=== PATIENT | male | born 1975 | race Caucasian/White ===

== ENCOUNTER 2020-11-13 09:37 | Observation (INO) | payer OTHER ==
[~2020-11-13] VITALS: Ht 177.8 cm; Wt 75.7 kg
[~2020-11-13 09:37] MED LIST: DIAZ5 PO; HYDR1TAB94 PO; LISI5 PO; LOSHYD PO; METF500 PO; Naprosyn500 MG PO; Norco 7.5-3251 EACH PO; TIZANIDINE HCL2 MG PO; ZESTORETIC 20-121 EA PO
[2020-11-13] MEDS ORDERED: TRAM50 PO (10:48)
[2020-11-13 10:57] LABS: BASOPHILS PERCENT AUTO 1 % (0-2); EOSINOPHILS ABSOLUTE AUTO 0.12 K/mm3 (0.00-0.68); EOSINOPHILS PERCENT AUTO 1 % (0-6); Hematocrit 44.6 % (37.0-53.0); Hemoglobin 15.6 g/dL (13.5-17.5); IMMATURE GRAN ABSOLUTE AUTO 0.04 K/mm3 (0.00-0.10); IMMATURE GRAN PERCENT AUTO 0 % (0-1); LYMPHOCYTES PERCENT AUTO 26 % (21-46); MONOCYTES ABSOLUTE AUTO 0.87 K/mm3 (0.16-1.47); MONOCYTES PERCENT AUTO 7 % (4-13); Mean Corpuscular HGB 31.4 pg (26.0-34.0); Mean Corpuscular Volume 90 fL (80-100); Mean Platelet Volume 9.2 fL (9.1-12.4); NEUTROPHILS PERCENT AUTO 65 % (41-73); Platelet Count 310 K/mm3 (150-400); RDW Coefficient Variation 11.9 % (11.7-14.2); RDW Standard Deviation 38.3 fL (35.1-46.3); Red Blood Cell Count 4.97 M/mm3 (4.30-5.90); White Blood Cell Count 12.13 K/mm3 (4.00-11.30)
[2020-11-13 11:16] LABS: Alanine Aminotransfer (ALT/SGP 28 U/L (12-78); Albumin, Blood 3.9 g/dL (3.4-5.0); Albumin/Globulin Ratio 1.1 (0.8-1.8); Alk Phos 113 U/L (50-136); Anion Gap 8 mmol/L (6-16); Aspartate Aminotrans (AST/SGOT 11 U/L (12-37); Bilirubin, Total 0.2 mg/dL (0.1-1.0); Blood Urea Nitrogen 18 mg/dL (8-24); Bun/Creatinine Ratio 25.4 (12.0-20.0); CO2, Blood 26 mmol/L (21-32); Calcium, Blood 9.3 mg/dL (8.5-10.1); Chloride, Blood 105 mmol/L (98-108); Creatinine, Blood 0.71 mg/dL (0.60-1.20); Globulin, Blood 3.4 g/dL (2.2-4.0); Glomerular Filtration Rate >60 (60-); Glucose, Blood 357 mg/dL (70-99); Sodium, Blood 139 mmol/L (136-145); Total Protein, Blood 7.3 g/dL (6.4-8.2)
[2020-11-13 12:45] LABS: Influenza A, PCR NEGATIVE (NEGATIVE); Influenza B, PCR NEGATIVE (NEGATIVE); Resp Syncytial Virus, PCR NEGATIVE (NEGATIVE); SARS-Cov-2 (COVID-19) PCR, MMC NEGATIVE (NEGATIVE)
[2020-11-13] MEDS ORDERED: ATOR20 PO (13:55)
[2020-11-13] MEDS ORDERED: GLUCOPHAGE1000 M1 PO (13:57)
[2020-11-13] MEDS ORDERED: Aspir 8181 MG PO (13:58)
[2020-11-13] MEDS ORDERED: LOSARTAN POTAS100 M1 PO (14:00)
[2020-11-13] MEDS ORDERED: BUPR150ER PO (15:14)
--- NOTE | 2020-11-13 17:00 | NUR ---
SHIFT SUMMARY PT A&OX4, VSS, NPO, PLAN FOR PEGTUBE PLACEMENT TOMORROW. IVF @ 75 MLS/HR. PAIN MANAGED WITH 25 MCG. VOIDING WELL. USES CALL LIGHT APPROPRIATELY. WILL REPORT TO ONCOMING NOC RN.
--- NOTE | 2020-11-14 05:05 | NUR ---
SHIFT SUMMARY: EMILY IS A&OX4. BP ELEVATED, HYDRALAZINE MINIMALLY EFFECTIVE. PT REPORTS GOOD PAIN RELIEF WITH 50 MCG OF FENTANYL. HE IS INDEPENDENT IN THE ROOM. IV TO L AC PATENT. HE REMAINS NPO, SWABS PROVIDED. HE USES THE CALL LIGHT APPROPRIATELY. HE IS LYING IN BED WITH THE CALL LIGHT IN REACH. WILL REPORT TO DAY SHIFT RN.
[2020-11-14 05:58] LABS: BASOPHILS ABSOLUTE AUTO 0.09 K/mm3 (0.00-0.23); BASOPHILS PERCENT AUTO 1 % (0-2); EOSINOPHILS ABSOLUTE AUTO 0.27 K/mm3 (0.00-0.68); EOSINOPHILS PERCENT AUTO 2 % (0-6); Hematocrit 41.4 % (37.0-53.0); Hemoglobin 14.5 g/dL (13.5-17.5); IMMATURE GRAN ABSOLUTE AUTO 0.06 K/mm3 (0.00-0.10); IMMATURE GRAN PERCENT AUTO 0 % (0-1); LYMPHOCYTES ABSOLUTE AUTO 4.82 K/mm3 (0.84-5.20); LYMPHOCYTES PERCENT AUTO 35 % (21-46); MONOCYTES ABSOLUTE AUTO 1.01 K/mm3 (0.16-1.47); MONOCYTES PERCENT AUTO 7 % (4-13); Mean Corpuscular HGB 31.2 pg (26.0-34.0); Mean Corpuscular Volume 89 fL (80-100); Mean Platelet Volume 9.2 fL (9.1-12.4); NEUTROPHILS ABSOLUTE AUTO 7.55 K/mm3 (1.96-9.15); NEUTROPHILS PERCENT AUTO 55 % (41-73); Platelet Count 296 K/mm3 (150-400); RDW Coefficient Variation 11.9 % (11.7-14.2); RDW Standard Deviation 38.1 fL (35.1-46.3); Red Blood Cell Count 4.65 M/mm3 (4.30-5.90)
[2020-11-14 06:25] LABS: Alanine Aminotransfer (ALT/SGP 27 U/L (12-78); Albumin, Blood 3.4 g/dL (3.4-5.0); Albumin/Globulin Ratio 1.2 (0.8-1.8); Alk Phos 72 U/L (50-136); Anion Gap 5 mmol/L (6-16); Aspartate Aminotrans (AST/SGOT 12 U/L (12-37); Bilirubin, Total 0.6 mg/dL (0.1-1.0); Blood Urea Nitrogen 12 mg/dL (8-24); Bun/Creatinine Ratio 21.6 (12.0-20.0); CO2, Blood 29 mmol/L (21-32); Calcium, Blood 8.6 mg/dL (8.5-10.1); Chloride, Blood 109 mmol/L (98-108); Creatinine, Blood 0.56 mg/dL (0.60-1.20); Globulin, Blood 2.8 g/dL (2.2-4.0); Glomerular Filtration Rate >60 (60-); Glucose, Blood 113 mg/dL (70-99); Potassium, Blood 3.2 mmol/L (3.5-5.5); Sodium, Blood 143 mmol/L (136-145); Total Protein, Blood 6.2 g/dL (6.4-8.2)
--- NOTE | 2020-11-14 13:11 | NUR ---
History, Chart, Medications and Allergies reviewed before start of procedure. Pre-Op teaching done. Pt verbalizes understanding.
--- NOTE | 2020-11-14 13:24 | NUR ---
11/14/20 1324 Iain Baker History, Chart, Medications and Allergies reviewed before start of procedure.MONITOR INTACT WITH CONTINUOUS PULSE OXIMETRY AND INTERMITTENT BP.3-LEAD EKG REVIEWED WITH PHYSICIAN PRIOR TO START OF PROCEDURE.O2 VIA N/C INTACT THROUGHOUT SEDATION/PROCEDURE. See Anesthesia record.
--- NOTE | 2020-11-14 13:24 | NUR ---
PT WENT TO [facility].
--- NOTE | 2020-11-14 17:14 | NUR ---
SHIFT SUMMARY PT A&OX4, VSS, AMBULATING INDEPENDENT TO BRP, VOIDING WELL, NPO, CBGS AC/HS. PAIN MANAGED WITH 50 MCGS FENT. S/P GASTROSOMY TUBE PLACEMENT; TUBE FEEDINGS RUNNING PER ORDER. WILL REPORT TO ONCOMING NOC RN.
--- NOTE | 2020-11-14 19:12 | NUR ---
RECEIVED REPORT FROM DAY SHIFT RN. PT SALINE LOCKED AND PEG TUBE FLUSHED AFTER INFUSION.
--- NOTE | 2020-11-15 04:05 | NUR ---
SHIFT SUMMARY: EMILY IS A&OX4. VS W/CONTINUED ELEVATION OF BP WITH MINIMAL IMPROVEMENT AFTER HYDRALAZINE. HE IS PARTICIPATING WITH HIS PEG TUBE, ATTENTIVE TO EDUCATION AND WILLING TO BE HANDS-ON. HE REPORTS ADEQUATE PAIN CONTROL WITH 50 MCG OF FENTANYL. IV TO L AC PATENT. HE IS INDEPENDENT IN THE ROOM, USES THE WHEELCHAIR TO GO ON "WALKS" AROUND THE HOSPITAL. HE IS LYING IN BED WITH THE CALL LIGHT IN REACH. WILL REPORT TO DAY SHIFT RN.
[2020-11-15 05:16] LABS: Hematocrit 41.7 % (37.0-53.0); Hemoglobin 14.4 g/dL (13.5-17.5); Mean Corpuscular HGB 30.5 pg (26.0-34.0); Mean Corpuscular HGB Conc 34.5 g/dL (31.5-36.5); Mean Corpuscular Volume 88 fL (80-100); Mean Platelet Volume 9.3 fL (9.1-12.4); Platelet Count 317 K/mm3 (150-400); RDW Coefficient Variation 11.8 % (11.7-14.2); Red Blood Cell Count 4.72 M/mm3 (4.30-5.90); White Blood Cell Count 13.82 K/mm3 (4.00-11.30)
[2020-11-15 05:52] LABS: Albumin, Blood 3.4 g/dL (3.4-5.0); Anion Gap 7 mmol/L (6-16); Blood Urea Nitrogen 10 mg/dL (8-24); Bun/Creatinine Ratio 18.1 (12.0-20.0); CO2, Blood 28 mmol/L (21-32); Calcium, Blood 8.8 mg/dL (8.5-10.1); Chloride, Blood 108 mmol/L (98-108); Creatinine, Blood 0.55 mg/dL (0.60-1.20); Glomerular Filtration Rate >60 (60-); Glucose, Blood 145 mg/dL (70-99); Magnesium, Blood 2.1 mg/dL (1.6-2.4); Phosphorus, Blood 4.3 mg/dL (2.5-4.9); Potassium, Blood 3.2 mmol/L (3.5-5.5); Sodium, Blood 143 mmol/L (136-145)
[2020-11-15 09:43] LABS: CHOL/HDL RATIO 2.4; Cholesterol 113 mg/dL (50-200); HDL Cholesterol 47 mg/dL (>39); LDL/HDL RATIO 1.1; Low Density Lipoprotein Chol 50 mg/dL (0-110); Triglycerides 81 mg/dL (30-160); Very Low Density Lipoprot Chol 16 mg/dL (6-32)
--- NOTE | 2020-11-15 13:56 | NUR ---
assumed care of pt following receiving report from previous RN. pt just out of shower, dressed and sitting on edge of bed, provided with ice water.
--- NOTE | 2020-11-15 17:36 | NUR ---
pt has remained a/o x 4, pleasant/cooperative, has worked with physical therapy, has ambulated to bathroom and in the hallway with wheelchair. pt has had visits from this afternoon. pt denies n/v, was evaluated by speech therapy.
--- NOTE | 2020-11-16 05:00 | NUR ---
SHIFT SUMMARY AOX4. SLURRED SPEECH. PLEASENT & COOPERATIVE. REPORTS 03/12 CHRONIC BACK PAIN, MEDICATED 1X c PERCOCET & PT ABLE TO REST. POD 2 FOR PEG TUBE PLACEMENT, PT NPO. DENIES N/V, ABD PAIN. ACTIVE BT. MEDS CRUSHED & PT. PT REFUSED 2100 FEEDING, STATING HE DIDNT FEEL HUNGRY & WANTED TO BE DISCONECTED FROM PUMP. BP ELEVATED @170 SYSTOLIC THIS AM, GAVE 10MG HYDRALAZINE, WILL RECHECK BP. HS CBG @117. AWAITING SNF PLACEMENT. CALL LIGHT IN REACH & WCTM.
[2020-11-16 09:19] LABS: Albumin, Blood 3.2 g/dL (3.4-5.0); Anion Gap 4 mmol/L (6-16); Blood Urea Nitrogen 12 mg/dL (8-24); Bun/Creatinine Ratio 21.1 (12.0-20.0); CO2, Blood 31 mmol/L (21-32); Calcium, Blood 8.6 mg/dL (8.5-10.1); Chloride, Blood 107 mmol/L (98-108); Creatinine, Blood 0.57 mg/dL (0.60-1.20); Glomerular Filtration Rate >60 (60-); Glucose, Blood 256 mg/dL (70-99); Phosphorus, Blood 3.7 mg/dL (2.5-4.9); Potassium, Blood 3.8 mmol/L (3.5-5.5); Sodium, Blood 142 mmol/L (136-145)
--- NOTE | 2020-11-16 18:21 | NUR ---
SHIFT SUMMARY PT TOLERATING INTERMITTEN FEEDS SO FAR TODAY. DENIES FULLNESS OR ABD DISTENTION. PT HAS NOT HAD A BM IN 5-6 DAYS PER THE PT. BOWEL CARE GIVEN T/O THE DAY. INCLUDING PRUNE JUICE. AFTERNOON BP ELEVATED. RECHECKED IN THE 170S SYSTOLIC. PT HOPING TO BE DISCHARGED TOMORROW TO A REHAB CENTER. NO OTHER ACUTE CHANGES IN ASSESSMENT AT THIS TIME. VS REVIEWED. PT RESTING IN BED & DENIES OTHER NEEDS AT THIS TIME. CALL LIGHT IN REACH.
--- NOTE | 2020-11-17 04:29 | NUR ---
SHIFT SUMMARY: SEVERE DYSPASIA PATIENT IS ALERT AND ORIENTED X4 WHILE AWAKE. HE HAS BEEN SLEEPING MAJORITY OF THE SHIFT BUT EASILY AROUSABLE. HE DOES HAVE A HIGH BP BUT OTHERWISE HAS WNL VS AND IS ON RA. PAIN IS CONTROLLED WITH 1 PERCOCET. HIS PEG TUBE IS WNL. HE HAS BEEN GETTING BOLUS FEEDS Q4H. HIS PILLS ARE ALSO CRUSHED AND GIVEN THROUGH PEG TUBE. PATIENT DENIES ANY NAUSEA OR VOMITING WITH FEEDINGS. HE HAS BOWEL SOUNDS IN ALL FOUR QUADRANTS. HE WALKS WITH A CANE AND IS INDEPENDANT. HE DOES HAVE A SLIGHT LEFT SIDED WEAKNESS AND A SLUR WITH HIS SPEECH FROM A STROKE HE HAD A MONTH AGO. CALLS APPROPRIATELY. CALL LIGHT WITHIN REACH. THE PLAN IS TO BE DISCHARGED TO A STROKE REHAB LATER TODAY.
[2020-11-17 17:15] LABS: Influenza A, PCR NEGATIVE (NEGATIVE); Influenza B, PCR NEGATIVE (NEGATIVE); Resp Syncytial Virus, PCR NEGATIVE (NEGATIVE); SARS-Cov-2 (COVID-19) PCR, MMC NEGATIVE (NEGATIVE)
--- NOTE | 2020-11-18 04:48 | NUR ---
SHIFT SUMMARY PT RESTED WELL THIS SHIFT. AAOX4. NPO. DISCOMFORT CONTROLLED WITH 2 PERCOCET CRUSHED PER TUBE. NO NAUSEA/EMESIS. PEG TUBE SECURE/NO DRAINAGE. FEEDINGS PER TUBE PER ORDERS. HTN NOTED, DR NOTIFIED + NEW ORDER FOR IV HYDRALAZINE ADMINISTERED, BP DECREASED POST ADMINISTRATION. x1 MODERATE SIZE FORMED STOOL THIS SHIFT. AWAITING TRANSFER TODAY. PT CURRENTLY RESTING IN BED WITH CALL LIGHT IN REACH.
--- NOTE | 2020-11-18 19:53 | NUR ---
SHIFT SUMMARY PT A&OX4, VSS, NPO/PEG TUBE FEEDINGS PER ORDERS. AMBULATING HALLWAYS, INDEPENDENT TO BRP. DENIES PAIN. SHOWERED TODAY. PLAN FOR TRANSFER TOMORROW. REPORT PROVIDED TO JOAN FIGUEREDO.
--- NOTE | 2020-11-19 05:51 | NUR ---
SHIFT SUMMARY PT RESTED WELL T/O NIGHT. AAOX4. DISCOMFORT CONTROLLED WITH 2 PERCOCET YESTARDAY EVENING. NO NAUSEA/EMESIS. STRICT NPO. PEG TUBE SECURE WITH SCHEDULED BOLUS FEEDINGS. ORAL CARE Q4H WHILE AWAKE. NO ACUTE CHANGES OVER NIGHT. PT AWOKE EARLY THIS AM + AMBULATED IN HALLS INDEPENDENT. AWAITING AM LABS + 0600 BOLUS FEEDING. PT CURRENTLY RESTING IN ROOM WITH CALL LIGHT IN REACH.
[2020-11-19 06:34] LABS: Albumin, Blood 3.3 g/dL (3.4-5.0); Anion Gap 6 mmol/L (6-16); Blood Urea Nitrogen 14 mg/dL (8-24); Bun/Creatinine Ratio 25.1 (12.0-20.0); CO2, Blood 30 mmol/L (21-32); Calcium, Blood 9.1 mg/dL (8.5-10.1); Chloride, Blood 109 mmol/L (98-108); Creatinine, Blood 0.56 mg/dL (0.60-1.20); Glomerular Filtration Rate >60 (60-); Glucose, Blood 112 mg/dL (70-99); Phosphorus, Blood 4.3 mg/dL (2.5-4.9); Potassium, Blood 3.4 mmol/L (3.5-5.5); Sodium, Blood 145 mmol/L (136-145)
--- NOTE | 2020-11-19 10:03 | NUR ---
SPEECH THERAPY DONE SEEING PT, INT FEED INITIATED AT THIS TIME. PT RESTING IN BED LISTENING TO BOOKS ON TAPE. DENIES PAIN OR NAUSEA AT THIS TIME.
--- NOTE | 2020-11-19 17:31 | NUR ---
SHIFT SUMMARY AA0X4. PT HAS BEEN AMBULATING FREQUENTLY DURING THE DAY. TOLERATING HIS FEEDINGS WELL, DENIES ANY NAUSEA. PAIN MANAGED PER EMAR ONCE THIS AM, HAS DENIED PAIN OTHERWISE. PLAN IS FOR PATIENT TO GO TO SNF AT THE START OF NEXT WEEK.
--- NOTE | 2020-11-20 05:37 | NUR ---
SHIFT SUMMARY: NO ACUTE CHANGES THIS SHIFT. PT AMBULATING IN HALLWAYS FREQUENTLY. TOLERATING FEEDS WELL. DENIES N/V. REPORTS PASSING FLATUS. PAIN MANAGED WITH PERCOCET PER EMAR. PT MEDICATED ONCE THIS SHIFT. PLAN FOR PT/OT. AWAITING SNF PLACEMENT. PT PLEASANT AND COOPERATIVE WITH CARE.
--- NOTE | 2020-11-20 18:30 | NUR ---
SUMMARY REPORTS TOLERATING TUBE FEEDINGS WELL, DENIES ANY ABD DISCOMFORT, AMBULATES INDEPENDENTLY WITH A CANE TO GO OUTSIDE, PT DOES OWN ORAL CARE PRN, NO ACUTE CHANGES THIS SHIFT.
--- NOTE | 2020-11-21 07:11 | NUR ---
PT HAD NO ACUTE CHANGES T/O NIGHT; BP ELEVATED BUT BELOW PRN PARAMETERS. PT DENIED CP/PRESSURE. PT JELENA TUBE FEEDINGS, ABD SOFT, BT ACTIVE, PT REP +FLATUS AND BM. AM TUBE FEED STARTED AT 0630 THIS AM, TUBING CHANGED AT THIS TIME WELL. PT AMB INDEP W/CANE FREQ OUTSIDE OF ROOM. PT IS FORGETFUL AT TIMES R/T DATES, REORIENTS EASILY. REPORT GIVEN TO SVETLANA Jorge RN.
--- NOTE | 2020-11-21 07:59 | NUR ---
A&OX3, DENIES ANY NEED FOR PAIN MEDS AT THIS TIME, AMBULATING DOWN THE HALLS W/ CANE, CONT. TO MONITOR FOR ANY CHANGES.
--- NOTE | 2020-11-21 18:24 | NUR ---
SUMMARY PT FELT "SLEEPY" TODAY, STATES DIDN'T SLEEP WELL LAST NIGHT, C/O CHRONIC LOW BACK PAIN, REPORTS HAVING ADEQUATE PAIN CONTROL WITH PERCOCET, AMBULATED OUTSIDE TO SMOKE X6 TODAY, DISCUSSED SMOKING CESSATION WITH PT BUT HAS NO INTEREST IN QUITTING, REPORTS TOLERATING TUBE FEEDS WELL, BP BETTER TODAY, NO OTHER CHANGES THIS SHIFT.
--- NOTE | 2020-11-22 07:19 | NUR ---
PT VSS, BP ELEVATED EARLY IN NIGHT, IMPROVED AFTER SCHEDULED BP MEDS. PT DENIED CP/PRESSURE. PT APPEARED TO SLEEP FOR MAJORITY OF NIGHT. TUBE FEEDS STARTED AT 0630 THIS AM, TUBING CHANGED AT THIS TIME. PT REMAINED NPO, CONT TO EXPRESS STRONG DESIRE TO EAT, ALTHOUGH VERBALIZES UNDERSTANDING OF IMPORTANCE OF NPO AND PLAN FOR REHAB. CONT TO AWAIT DC PLANS TO IRU.
--- NOTE | 2020-11-22 11:46 | NUR ---
TUBE FEEDING PT GIVEN A 240 ML JEVITY FEEDING AT 0900 AND 1200 WITH 100 ML WATER FLUSH BEFORE AND AFTER EACH FEEDING. PT TOLERATED WELL AND DENIES PAIN, BLOATING. NO RESISTANCE NOTED. DRESSING C/D/I AT THIS TIME.
--- NOTE | 2020-11-22 18:08 | NUR ---
SHIFT SUMMARY PT ALERT AND INDEPENDENT IN ROOM THROUGH OUT SHIFT. SLURRED SPEECH AND OCCASIONLLY FORGETFUL. GIVEN 240 ML JEVITY PEG TUBE FEEDING WITH 100 ML WATER FLUSH BEFORE AND AFTER AT 1500 AND 1800. PT TOLERATED WELL. PT PERFORMING Q3 HR ORAL CARE WITH SUCTION TOOTH BRUSH. ABD SOFT AND NON-TENDER. PEG TUBE DRESSING C/D/I. MEDICATED FOR PAIN AND BLOOD GLUCOSE PER EMAR. WAITING FOR SNF PLACEMENT, NOTHING POTENTIALLY AVAIL UNTIL FRIDAY 11/24 PER CASE MANAGEMENT.
--- NOTE | 2020-11-22 23:33 | NUR ---
RECEIVED REPORT AND ASSUMED CARE OF PT. EMILY IS UP TO THE BATHROOM, PAIN MEDICATION PROVIDED AT HIS REQUEST. HE IS ABLE TO MAKE HIS NEEDS KNOWN. WCSHINE.
--- NOTE | 2020-11-23 05:11 | NUR ---
SHIFT SUMMARY: EMILY IS A&OX4. VSS, NO ACUTE EVENTS OVERNIGHT. HE IS TOLERATING THE TUBE FEEDINGS WELL AND REPORTS ADEQUATE PAIN CONTROL WITH ONE TABLET OF PERCOCET. HE IS INDEPENDENT IN THE ROOM AND HALLWAYS. HE STATES THAT HE IS WAITING FOR A BED TO OPEN UP SO THAT HE CAN RECEIVE INPATIENT THERAPY. HE EXPRESSES HOPE THAT HE WILL BE ABLE TO EAT AGAIN. HE IS LYING IN BED WITH THE CALL LIGHT IN REACH. WILL REPORT TO DAY SHIFT RN.
--- NOTE | 2020-11-23 12:54 | NUR ---
DIETARY NOTE SPOKE WITH DIETARY. THE BOLUS TUBE FEEDINGS ARE INTERFERING WITH THE SPEECH/SWALLOW THERAPY. DIETARY IS GOING TO CHANGE THE FEEDINGS TO GRAVITY FEED WHICH WILL BE FASTER. WILL WATCH FOR ORDERS.
[2020-11-23 17:19] LABS: Influenza A, PCR NEGATIVE (NEGATIVE); Influenza B, PCR NEGATIVE (NEGATIVE); Resp Syncytial Virus, PCR NEGATIVE (NEGATIVE); SARS-Cov-2 (COVID-19) PCR, MMC NEGATIVE (NEGATIVE)
--- NOTE | 2020-11-23 17:26 | NUR ---
SHIFT SUMMARY PATIENT IS ALERT AND INDEPENDENT IN ROOM THROUGHOUT SHIFT. FORGETFUL AT TIMES AND SPEECH IS SLURRED. PEG TUBE IS PATENT AND DRESSING C/D/I. Q3 HR TUBE FEEDINGS DURING DAY. FEEDINGS SWITCHED TO GRAVITY FEED THIS SHIFT. PATIENT ABLE TO SELF PERFORM ORAL CARE. DENIES ABD PAIN. VOIDING WELL. PLAN TO DISCHARGE TO SNF 11/24/20 IF BED AVAILABLE. MEDICATED FOR CHRONIC BACK PAIN PER EMAR.
--- NOTE | 2020-11-24 04:47 | NUR ---
SHIFT SUMMARY: NO SIGNIFICANT CHANGES THIS SHIFT. PEG TUBE WNL AND FLUSHED DURING MEDICATION ADMINISTRATION. PT MEDICATED ONCE WITH PEROCOCET PER EMAR. INDPENDENT AND AMBULATING FREQUENTLY IN HALLWAY. AWAITING SNF PLACEMENT.
--- NOTE | 2020-11-24 11:43 | NUR ---
REPORT GIVEN TO SARAI, SAND SYSTEM OPERATOR IN [facility] AT THIS TIME
--- NOTE | 2020-11-24 12:15 | NUR ---
FACILITY TRANSFER: 0900 TUBE FEEDING GIVEN WELL A FEEDING AT 1145. PT GIVEN PACKET, IV DC'D. PT LEFT UNIT AT 1200 VIA WHEELCHAIR WITH GUSTAVO BROWER.
== END 2020-11-24 12:05 | disposition home or self-care (01) ==
LOC: ER 09:37 → SURS 09:38
PROVIDERS: Emergency Medicine; Internal Medicine; Physician Assistant; Surgery; ADMIT Internal Medicine
PROC: 0DH63UZ Insertion of Feeding Device into Stomach, Percutaneous Approach (ICD-10-PCS; principal; 2020-11-14 13:00)
DX: I69.391 Dysphagia following cerebral infarction (principal); R13.12 Dysphagia, oropharyngeal phase; I69.321 Dysphasia following cerebral infarction; E11.65 Type 2 diabetes mellitus with hyperglycemia; I10 Essential (primary) hypertension; F17.210 Nicotine dependence, cigarettes, uncomplicated; G89.29 Other chronic pain; M54.5 Low back pain; Z79.82 Long term (current) use of aspirin; Z79.84 Long term (current) use of oral hypoglycemic drugs; Z88.8 Allergy status to other drugs, medicaments and biological substances; Z20.822 Contact with and (suspected) exposure to COVID-19
CPT/HCPCS: 0241U; 36415; 71046; 80053; 80061; 80069; 82947; 83036; 83735; 85025; 85027; 92526; 92610; 93005; 93010; 93306; 93880; 96374; 96375; 96376; 97110; 97110-CO; 97112; 97116; 97129; 97129-GO-CO; 97130; 97162; 97166; 97530; 97535-CO; 99285-25; A9270; C1769; G0378; J0360; J2704; J3010; J3480; J7030; J7040

== ENCOUNTER 2023-04-30 13:27 | Inpatient (IN) | payer OTHER ==
[~2023-04-30] VITALS: Ht 172.7 cm; Wt 73.2 kg
[~2023-04-30 13:27] MED LIST changes: +ATOR20 PO; +Aspir 8181 MG PO; +BUPR150ER PO; +GLUCOPHAGE1000 M1 PO; +LOSA50 PO; +TRAM50 PO
[2023-04-30 15:15] LABS: BASOPHILS ABSOLUTE AUTO 0.07 K/mm3 (0.00-0.23); BASOPHILS PERCENT AUTO 1 % (0-2); EOSINOPHILS ABSOLUTE AUTO 0.15 K/mm3 (0.00-0.68); EOSINOPHILS PERCENT AUTO 1 % (0-6); Hematocrit 43.1 % (37.0-53.0); Hemoglobin 15.8 g/dL (13.5-17.5); IMMATURE GRAN ABSOLUTE AUTO 0.03 K/mm3 (0.00-0.10); IMMATURE GRAN PERCENT AUTO 0 % (0-1); LYMPHOCYTES ABSOLUTE AUTO 3.04 K/mm3 (0.84-5.20); LYMPHOCYTES PERCENT AUTO 28 % (21-46); MONOCYTES ABSOLUTE AUTO 0.66 K/mm3 (0.16-1.47); MONOCYTES PERCENT AUTO 6 % (4-13); Mean Corpuscular HGB 32.2 pg (26.0-34.0); Mean Corpuscular HGB Conc 36.7 g/dL (31.5-36.5); Mean Corpuscular Volume 88 fL (80-100); Mean Platelet Volume 9.5 fL (9.1-12.4); NEUTROPHILS ABSOLUTE AUTO 6.74 K/mm3 (1.96-9.15); NEUTROPHILS PERCENT AUTO 63 % (41-73); Platelet Count 276 K/mm3 (150-400); RDW Coefficient Variation 11.7 % (11.7-14.2); RDW Standard Deviation 37.5 fL (35.1-46.3); Red Blood Cell Count 4.91 M/mm3 (4.30-5.90); White Blood Cell Count 10.69 K/mm3 (4.00-11.30)
[2023-04-30 15:39] LABS: Albumin/Globulin Ratio 1.4 (0.8-1.8); Bilirubin, Total 0.7 mg/dL (0.1-1.0); Bun/Creatinine Ratio 34.5 (12.0-20.0); Calcium, Blood 9.3 mg/dL (8.5-10.1); Creatinine, Blood 0.52 mg/dL (0.60-1.20); Globulin, Blood 2.9 g/dL (2.2-4.0); Potassium, Blood 4.1 mmol/L (3.5-5.5); Total Protein, Blood 6.9 g/dL (6.4-8.2)
[2023-04-30 16:23] LABS: International Normalized Ratio 0.98; Prothrombin Time Results 10.3 Sec (9.7-11.5)
[2023-04-30] MEDS ORDERED: DOXE10 PO (16:30)
[2023-04-30 17:01] VITALS: BP 192/102
--- NOTE | 2023-04-30 20:03 | NUR ---
LATE ENTRY PT ADMIT FROM ER. ALERT AND ORIENTED X4. SLURRED SPEECH AND IMPARIED GAIT AT BASELINE. PER PT AND PARTNER, PT IS AT HIS BASELINE. PARTNER STATED THAT PT HAS FALLEN BEFORE DUE TO DEFICITS. ABLE TO MAKE NEEDS KNOWN AT THIS TIME. BED ALARM ON FOR PT SAFTEY.
[2023-04-30 20:13] VITALS: BP 201/92
--- NOTE | 2023-04-30 20:27 | NUR ---
B/P , DR. DUARTE NOTIFIED AND WILL PLACE ORDERS.
[2023-04-30 22:41] VITALS: BP 189/91
[2023-05-01] VITALS (10 sets, daily range): BP systolic 149–202; BP diastolic 82–100
--- NOTE | 2023-05-01 05:01 | NUR ---
PATIENT A/OX4, UP WITH CANE AND SBA. PATIENT FORGETS LIMITATIONS AND FALL PRECAUTIONS ARE IN PLACE. B/P ELEVATED THIS SHIFT SHIFT, LOSARTAN AND IV METOPROLOL GIVEN TO TREAT WHICH DID BRING IT DOWN SOME. SR ON TELE, DENIES ANY CP OR PRESSURE. REPORTS CHRONIC BACK PAIN, TYLENOL GIVEN X1 TO TREAT. PATIENT UNSTADY ON FEET, PATIENT EQUALLY WEAK ON BOTH SIDES, REPORTS SLURRED SPEECH IS AT THIS BASELINE. SKIN INTACT. CONTINENT OF BOWEL/BLADDER. CALM AND COOPERATIVE WITH CARE.
[2023-05-01 05:30] LABS: BASOPHILS ABSOLUTE AUTO 0.05 K/mm3 (0.00-0.23); BASOPHILS PERCENT AUTO 1 % (0-2); EOSINOPHILS ABSOLUTE AUTO 0.27 K/mm3 (0.00-0.68); EOSINOPHILS PERCENT AUTO 3 % (0-6); Hematocrit 40.5 % (37.0-53.0); Hemoglobin 14.8 g/dL (13.5-17.5); IMMATURE GRAN ABSOLUTE AUTO 0.03 K/mm3 (0.00-0.10); IMMATURE GRAN PERCENT AUTO 0 % (0-1); LYMPHOCYTES ABSOLUTE AUTO 4.26 K/mm3 (0.84-5.20); LYMPHOCYTES PERCENT AUTO 43 % (21-46); MONOCYTES ABSOLUTE AUTO 0.75 K/mm3 (0.16-1.47); MONOCYTES PERCENT AUTO 8 % (4-13); Mean Corpuscular HGB 32.1 pg (26.0-34.0); Mean Corpuscular HGB Conc 36.5 g/dL (31.5-36.5); Mean Corpuscular Volume 88 fL (80-100); Mean Platelet Volume 10.1 fL (9.1-12.4); NEUTROPHILS ABSOLUTE AUTO 4.57 K/mm3 (1.96-9.15); NEUTROPHILS PERCENT AUTO 46 % (41-73); Platelet Count 294 K/mm3 (150-400); RDW Coefficient Variation 11.6 % (11.7-14.2); RDW Standard Deviation 37.2 fL (35.1-46.3); Red Blood Cell Count 4.61 M/mm3 (4.30-5.90); White Blood Cell Count 9.93 K/mm3 (4.00-11.30)
[2023-05-01 05:55] LABS: Albumin, Blood 3.7 g/dL (3.4-5.0); Anion Gap 6 mmol/L (6-16); Blood Urea Nitrogen 15 mg/dL (8-24); Bun/Creatinine Ratio 28.2 (12.0-20.0); CO2, Blood 27 mmol/L (21-32); Calcium, Blood 8.7 mg/dL (8.5-10.1); Chloride, Blood 109 mmol/L (98-108); Creatinine, Blood 0.53 mg/dL (0.60-1.20); Glomerular Filtration Rate 124 (60-); Glucose, Blood 158 mg/dL (70-99); Phosphorus, Blood 3.4 mg/dL (2.5-4.9); Sodium, Blood 142 mmol/L (136-145)
--- NOTE | 2023-05-01 12:38 | NUR ---
NOTE: SPOKE WITH PT'S DAUGHTER, MARILY, ON THE PHONE. GAVE HER AN UPDATE. SHE HAD NO FURTHER QUESTIONS. THE PT VERBALIZED CONSENT TO SPEAK WITH HIS DAUGHTER ABOUT HIS CURRENT STATE.
--- NOTE | 2023-05-01 16:33 | NUR ---
SHIFT SUMMARY PT AOX4, 1 ASSIST WITH THE FWW AND GB. WORKED WITH SPEECH THERAPY TODAY, NEW ORDERS PER THE CHART. ALSO WORKED WITH PT/OT THIS SHIFT, SEE THEIR NOTES. PT HAS HAD NO COMPLAINTS, HE HAS BEEN LISTENING TO AUDIO BOOKS IN HIS ROOM. MG REPLACED PER THE EMAR THIS SHIFT. PT HAS BEEN EATING WELL EVEN WITH THE CONSISTENCY CHANGE. IV METOPROLOL GIVEN DUE TO ELEVATED SYSTOLIC PRESSURE THIS AFTERNOON. TELE NOTIFIED AND MONITORED. CALL LIGHT WITHIN REACH, BED IN THE LOWEST POSITION. WILL REPORT TO ONCOMING NURSE.
--- NOTE | 2023-05-01 18:21 | NUR ---
NOTE: PT'S BP NOT DECREASING AFTER 5MG OF IV METOPROLOL PER THE EMAR, PROVIDER NOTIFIED. NEW ORDERS FOR 10MG IV METOPROLOL ORDERED. WILL GIVE OTHER 5MG TO MAKE TOTAL OF 10MG.
--- NOTE | 2023-05-01 18:37 | NUR ---
NOTE: PT'S BLOOD PRESSURE STILL ELEVATED AFTER ADMINISTERING IV METOPROLOL PER EMAR. DR. BRENNAN NOTIFIED AND ORDERS FOR 10MG IV METOPROLOL OBTAINED. THIS NURSE ENTERED THE ORDER INTO THE CHART, PHARMACY CALLED AND SAID THAT THE ORDER SHOULD BE WRITTEN A RANGE FROM 5MG-10MG. THEY WOULD NOT VERIFY IT UNTIL SPEAKING TO THE PROVIDER AGAIN. THIS NURSE CALLED THE PROVIDER AGAIN AND SHE DID NOT ANSWER. WAITING FOR THE PROVIDER TO CALL BACK TO OBTAIN THE NEW ORDER.
[2023-05-02 05:05] VITALS: BP 200/91
[2023-05-02 05:47] VITALS: BP 155/79
[2023-05-02 06:05] LABS: Albumin, Blood 3.7 g/dL (3.4-5.0); Anion Gap 6 mmol/L (6-16); Blood Urea Nitrogen 12 mg/dL (8-24); Bun/Creatinine Ratio 23.5 (12.0-20.0); CO2, Blood 27 mmol/L (21-32); Calcium, Blood 8.6 mg/dL (8.5-10.1); Chloride, Blood 110 mmol/L (98-108); Creatinine, Blood 0.51 mg/dL (0.60-1.20); Glomerular Filtration Rate 125 (60-); Glucose, Blood 147 mg/dL (70-99); Phosphorus, Blood 3.6 mg/dL (2.5-4.9); Potassium, Blood 3.2 mmol/L (3.5-5.5); Sodium, Blood 143 mmol/L (136-145)
--- NOTE | 2023-05-02 06:09 | NUR ---
PATIENT A/OX4, UP WITH FWW AND SBA. B/P REMAINED HIGH MOST OF THIS SHIFT. HOSPITALIST NOTIFIED AND LOSARTAN INCREASED. HYDRALAZINE PO AND LEBETOLOL IV ORDERED PRN. B/P 200/91 THIS MORNING, LEBETOLOL AND HYDRALAZINE GIVEN TO TREAT, B/P CAME DOWN TO 155/79. PATIENT DID GREAT TAKING PILLS WHOLE WITH APPLESAUCE. VERY PLEASANT AND COOPERATIVE WITH CARE. SR ON TELE WITH HR IN THE 70'S. NO NEURO CHANGES THIS SHIFT.
[2023-05-02 08:15] VITALS: BP 150/77
[2023-05-02 15:36] VITALS: BP 177/93
--- NOTE | 2023-05-02 18:12 | NUR ---
THE PATIENT IS A&O X3, PLEASENT TO VISIT WITH AND FOLLOWS COMMANDS. THE PATIENT IS INDEPENDENT TO GO TO THE REST ROOM WITH HIS WALKER. THE PATIENT'S FAMILY WAS IN TO VISIT TWICE TODAY AND TALKED WITH HOME HEALTH. THE PATIENT IS EATING DINNER AND RESTING AT THIS TIME, I WILL CONTINUE TO MONITOR.
[2023-05-02 19:21] VITALS: BP 183/94
[2023-05-02 21:09] VITALS: BP 206/98
[2023-05-03 01:51] VITALS: BP 145/92
--- NOTE | 2023-05-03 03:29 | NUR ---
END OF SHIFT SUMMARY PT PLEASANT AND COOPERATIVE WITH CARE PROVIDED. PT ASLEEP AROUND 0200. VSS, BP STABLIZIED AT 145/92, HR 77 BPM. PT RECEIVED PRN HYDRALAZINE AND LABETALOL PER ORDERS. PT A&O x4. PT AMBULATES INDEPENDENTLY WITH A STEADY GAIT. SPEECH SLURRED, AND SOFT BUT UNDERSTANDABLE. PT DENIED ANY SOB, CP OR HEADACHES. PT ABLE TO MAKE NEEDS KNOWN, CALL LIGHT WITHIN REACH, WCTM.
[2023-05-03 04:19] VITALS: BP 188/90
[2023-05-03 05:04] LABS: BASOPHILS ABSOLUTE AUTO 0.06 K/mm3 (0.00-0.23); BASOPHILS PERCENT AUTO 1 % (0-2); EOSINOPHILS ABSOLUTE AUTO 0.17 K/mm3 (0.00-0.68); EOSINOPHILS PERCENT AUTO 2 % (0-6); Hematocrit 40.2 % (37.0-53.0); Hemoglobin 14.7 g/dL (13.5-17.5); IMMATURE GRAN ABSOLUTE AUTO 0.03 K/mm3 (0.00-0.10); IMMATURE GRAN PERCENT AUTO 0 % (0-1); LYMPHOCYTES ABSOLUTE AUTO 2.72 K/mm3 (0.84-5.20); LYMPHOCYTES PERCENT AUTO 34 % (21-46); MONOCYTES ABSOLUTE AUTO 0.71 K/mm3 (0.16-1.47); MONOCYTES PERCENT AUTO 9 % (4-13); Mean Corpuscular HGB Conc 36.6 g/dL (31.5-36.5); Mean Corpuscular Volume 88 fL (80-100); Mean Platelet Volume 9.8 fL (9.1-12.4); NEUTROPHILS ABSOLUTE AUTO 4.35 K/mm3 (1.96-9.15); NEUTROPHILS PERCENT AUTO 54 % (41-73); Platelet Count 294 K/mm3 (150-400); RDW Coefficient Variation 11.6 % (11.7-14.2); RDW Standard Deviation 36.9 fL (35.1-46.3); Red Blood Cell Count 4.59 M/mm3 (4.30-5.90); White Blood Cell Count 8.04 K/mm3 (4.00-11.30)
[2023-05-03 05:20] LABS: Albumin, Blood 3.7 g/dL (3.4-5.0); Anion Gap 5 mmol/L (6-16); Blood Urea Nitrogen 11 mg/dL (8-24); Bun/Creatinine Ratio 18.8 (12.0-20.0); CO2, Blood 28 mmol/L (21-32); Calcium, Blood 8.6 mg/dL (8.5-10.1); Chloride, Blood 109 mmol/L (98-108); Creatinine, Blood 0.58 mg/dL (0.60-1.20); Glomerular Filtration Rate 120 (60-); Glucose, Blood 148 mg/dL (70-99); Magnesium, Blood 1.6 mg/dL (1.6-2.4); Phosphorus, Blood 3.4 mg/dL (2.5-4.9); Sodium, Blood 142 mmol/L (136-145)
[2023-05-03 07:49] VITALS: BP 156/85
[2023-05-03 11:14] LABS: SARS-Cov-2 (COVID-19) PCR, MMC NEGATIVE (NEGATIVE)
[2023-05-03 13:45] VITALS: BP 171/93
[2023-05-03 16:55] VITALS: BP 172/98
--- NOTE | 2023-05-03 16:58 | NUR ---
THE PATIENT IS A&O X4, FOLLOWS COMMANDS AND IS PLEASANT TO VISIT WITH. THE PATIENT MAY POSSIBLE GO HOME TOMORROW, THE PATIENT HAD AN ELEVATED B/P AT 1530 AND RECEIVED LABETOLOL. THE PATIENT IS RESTING AT THIS TIME, I WILL CONTINUE TO MONITOR.
[2023-05-03 19:32] VITALS: BP 168/95
[2023-05-04 05:00] VITALS: BP 160/84
[2023-05-04 05:58] LABS: Albumin, Blood 3.7 g/dL (3.4-5.0); Anion Gap 6 mmol/L (6-16); Blood Urea Nitrogen 11 mg/dL (8-24); Bun/Creatinine Ratio 17.1 (12.0-20.0); CO2, Blood 27 mmol/L (21-32); Calcium, Blood 8.9 mg/dL (8.5-10.1); Chloride, Blood 110 mmol/L (98-108); Creatinine, Blood 0.65 mg/dL (0.60-1.20); Glomerular Filtration Rate 116 (60-); Glucose, Blood 144 mg/dL (70-99); Phosphorus, Blood 3.9 mg/dL (2.5-4.9); Potassium, Blood 3.4 mmol/L (3.5-5.5); Sodium, Blood 143 mmol/L (136-145)
--- NOTE | 2023-05-04 07:39 | NUR ---
NO ACUTE CHANGES NOTED, PT IS AOX4, CALLS APPROPRIATELY, VSS ON RA, REPOSITIONS INDEPENDENTLY TOLERATES MEDS WHOLE WITH THICKENED LIQUID, PLEASANT. FIRE SAFETY REVIEWED.
[2023-05-04 08:06] VITALS: BP 149/91
[2023-05-04] MEDS ORDERED: ACET325 PO (12:14)
[2023-05-04] MEDS ORDERED: CARV3.125 PO (12:14)
[2023-05-04] MEDS ORDERED: CLOPIDOGREL75 MG PO (12:15)
[2023-05-04] MEDS ORDERED: B-121000 MCG PO (12:16)
[2023-05-04] MEDS ORDERED: HYDRA25 PO (12:18)
[2023-05-04] MEDS ORDERED: INSULIN GL100 UNIT/2 SC (12:19)
[2023-05-04] MEDS ORDERED: HUMALOG KW100 UNIT/1 SC (12:22)
[2023-05-04] MEDS ORDERED: ONDA4ODT MM (12:30)
[2023-05-04] MEDS ORDERED: NICODERM CQ TOP (12:30)
--- NOTE | 2023-05-04 14:16 | NUR ---
THE PATIENT WAS DISCHARGED TO [facility]. AFTER REPORT WAS CALLED IN AND HISS IV'S WERE REMOVED. THE PATINT LEFT THE HOSPITAL VIA WHEELCHAIR AND HIS S/O TRANSPORTED HIM THE REHAB.
== END 2023-05-04 14:02 | DRG 65 ==
LOC: ER 13:27 → MEDS 15:32 → ENPENDDIS 05-03 14:26 → EDPENDDISDT 05-04 11:37 → EDPENDDISTM 05-04 11:37 → MEDS 05-04 14:02
PROVIDERS: Emergency Medicine; ADMIT Internal Medicine
DX: I63.89 Other cerebral infarction (principal); G81.91 Hemiplegia, unspecified affecting right dominant side; I10 Essential (primary) hypertension; F17.210 Nicotine dependence, cigarettes, uncomplicated; R47.1 Dysarthria and anarthria; E53.8 Deficiency of other specified B group vitamins; Z66 Do not resuscitate; Z51.5 Encounter for palliative care; I65.23 Occlusion and stenosis of bilateral carotid arteries; Z20.822 Contact with and (suspected) exposure to COVID-19; E11.319 Type 2 diabetes mellitus with unspecified diabetic retinopathy without macular edema; E83.42 Hypomagnesemia; E87.6 Hypokalemia; Z86.73 Personal history of transient ischemic attack (TIA), and cerebral infarction without residual deficits; Z79.84 Long term (current) use of oral hypoglycemic drugs; Z79.82 Long term (current) use of aspirin; Z98.1 Arthrodesis status; Z79.899 Other long term (current) drug therapy; Z88.8 Allergy status to other drugs, medicaments and biological substances
CPT/HCPCS: 36415; 80053; 80069; 82947; 83036; 83735; 85025; 85610; 85730; 92523; 92526; 92610; 93005; 93010; 93306; 93880; 97110; 97112; 97116; 97162; 97166; 97530; 97535; 99285-25; A9270; J1650; J1815; J3420; J3475; U0002

== ENCOUNTER 2023-06-09 08:21 | Emergency (ER) | payer OTHER ==
[~2023-06-09] VITALS: Ht 180.3 cm; Wt 68.0 kg
[~2023-06-09 08:21] MED LIST changes: +ACET325 PO; +B-121000 MCG PO; +CARV3.125 PO; +CLOPIDOGREL75 MG PO; +DOXE10 PO; +HUMALOG KW100 UNIT/1 SC; +HYDRA25 PO; +INSULIN GL100 UNIT/2 SC; +NICODERM CQ TOP; +ONDA4ODT MM
[2023-06-09] MEDS ORDERED: REPATHA SU140 MG/1 M SC (08:59)
[2023-06-09 09:02] LABS: BASOPHILS ABSOLUTE AUTO 0.06 K/mm3 (0.00-0.23); BASOPHILS PERCENT AUTO 1 % (0-2); EOSINOPHILS ABSOLUTE AUTO 0.06 K/mm3 (0.00-0.68); EOSINOPHILS PERCENT AUTO 1 % (0-6); Hematocrit 42.7 % (37.0-53.0); Hemoglobin 14.8 g/dL (13.5-17.5); IMMATURE GRAN ABSOLUTE AUTO 0.03 K/mm3 (0.00-0.10); IMMATURE GRAN PERCENT AUTO 0 % (0-1); LYMPHOCYTES ABSOLUTE AUTO 2.04 K/mm3 (0.84-5.20); LYMPHOCYTES PERCENT AUTO 22 % (21-46); MONOCYTES ABSOLUTE AUTO 0.74 K/mm3 (0.16-1.47); MONOCYTES PERCENT AUTO 8 % (4-13); Mean Corpuscular HGB 31.6 pg (26.0-34.0); Mean Corpuscular HGB Conc 34.7 g/dL (31.5-36.5); Mean Corpuscular Volume 91 fL (80-100); Mean Platelet Volume 9.6 fL (9.1-12.4); NEUTROPHILS ABSOLUTE AUTO 6.54 K/mm3 (1.96-9.15); NEUTROPHILS PERCENT AUTO 69 % (41-73); Platelet Count 287 K/mm3 (150-400); RDW Coefficient Variation 12.6 % (11.7-14.2); RDW Standard Deviation 41.2 fL (35.1-46.3); Red Blood Cell Count 4.68 M/mm3 (4.30-5.90); White Blood Cell Count 9.47 K/mm3 (4.00-11.30)
[2023-06-09 09:32] LABS: Albumin, Blood 4.3 g/dL (3.4-5.0); Albumin/Globulin Ratio 1.6 (0.8-1.8); Bilirubin, Total 0.7 mg/dL (0.1-1.0); Bun/Creatinine Ratio 20.4 (12.0-20.0); Calcium, Blood 9.1 mg/dL (8.5-10.1); Creatinine, Blood 0.79 mg/dL (0.60-1.20); Globulin, Blood 2.7 g/dL (2.2-4.0); Potassium, Blood 3.9 mmol/L (3.5-5.5)
[2023-06-09 11:47] LABS: Source, Urine Clean Catch
[2023-06-09 11:56] LABS: Appearance, Urine Clear (Clear); Bilirubin, Urine Neg (Neg); Blood, Urine Neg (Neg); Color, Urine Yellow (P-Yellow); Glucose Qualitative, Urine 4+ (Neg); Ketones, Urine 3+ (Neg); Leukocyte Esterase, Urine Neg (Neg); Nitrite, Urine Neg (Neg); Protein, Urine 1+ (Neg); Urobilinogen, Urine NORM (Normal)
[2023-06-09 13:00] VITALS: BP 176/89
== END 2023-06-09 13:05 | disposition home or self-care (01) ==
LOC: ER 08:21
PROVIDERS: Emergency Medicine
DX: R53.1 Weakness (principal); Z88.8 Allergy status to other drugs, medicaments and biological substances; Z79.899 Other long term (current) drug therapy; Z79.82 Long term (current) use of aspirin; E11.9 Type 2 diabetes mellitus without complications; I10 Essential (primary) hypertension
CPT/HCPCS: 70450; 71045; 80053; 85025; 93005; 93010; 96360; 96361; 99285-25; J7030